=== PATIENT | female | born 1975 ===

== ENCOUNTER 2020-09-21 06:00 | Outpatient (RCR) | payer MEDICAID, SELFPAY | END 2020-10-05 23:59 | disposition home or self-care (01) | LOC: MPT 06:00 | PROVIDERS: PCP Internal Medicine; Referring Provider Internal Medicine; Visit Provider Internal Medicine | DX: M54.2 Cervicalgia (principal) | CPT/HCPCS: 97110; 97161 ==

== ENCOUNTER 2020-10-06 06:00 | Outpatient (RCR) | payer MEDICAID, SELFPAY | END 2020-11-05 23:59 | disposition home or self-care (01) | LOC: MPT 06:00 | PROVIDERS: PCP Internal Medicine; Referring Provider Internal Medicine; Visit Provider Internal Medicine | DX: M54.2 Cervicalgia (principal) | CPT/HCPCS: 97110; 97530 ==

== ENCOUNTER 2020-11-06 06:00 | Outpatient (RCR) | payer MEDICAID, SELFPAY | END 2020-12-03 23:59 | disposition home or self-care (01) | LOC: MPT 06:00 | PROVIDERS: PCP Internal Medicine; Referring Provider Internal Medicine; Visit Provider Internal Medicine | DX: M54.2 Cervicalgia (principal) | CPT/HCPCS: 97110; 97530 ==

== ENCOUNTER 2020-12-04 06:00 | Outpatient (RCR) | payer MEDICAID, SELFPAY | END 2021-01-03 23:59 | disposition home or self-care (01) | LOC: MPT 06:00 | PROVIDERS: PCP Internal Medicine; Referring Provider Internal Medicine; Visit Provider Internal Medicine | DX: M54.41 Lumbago with sciatica, right side (principal) | CPT/HCPCS: 97110; 97530 ==

== ENCOUNTER 2021-01-04 06:00 | Outpatient (RCR) | payer MEDICAID, SELFPAY | END 2021-02-02 23:59 | disposition home or self-care (01) | LOC: MPT 06:00 | PROVIDERS: PCP Internal Medicine; Referring Provider Internal Medicine; Visit Provider Internal Medicine | DX: S46.091S Other injury of muscle(s) and tendon(s) of the rotator cuff of right shoulder, sequela (principal); X58.XXXS Exposure to other specified factors, sequela; M54.2 Cervicalgia | CPT/HCPCS: 97110; 97530 ==

== ENCOUNTER 2021-02-03 06:00 | Outpatient (RCR) | payer MEDICAID, SELFPAY | END 2021-03-05 23:59 | disposition home or self-care (01) | LOC: MPT 06:00 | PROVIDERS: PCP Internal Medicine; Referring Provider Internal Medicine; Visit Provider Internal Medicine | DX: M54.41 Lumbago with sciatica, right side (principal); S46.091S Other injury of muscle(s) and tendon(s) of the rotator cuff of right shoulder, sequela; X58.XXXS Exposure to other specified factors, sequela; M54.2 Cervicalgia | CPT/HCPCS: 97110; 97140; 97530; G0283 ==

== ENCOUNTER 2021-03-06 06:00 | Outpatient (RCR) | payer MEDICAID, SELFPAY | END 2021-04-04 23:59 | disposition home or self-care (01) | LOC: MPT 06:00 | PROVIDERS: PCP Internal Medicine; Referring Provider Internal Medicine; Visit Provider Internal Medicine | DX: M54.41 Lumbago with sciatica, right side (principal); S46.091S Other injury of muscle(s) and tendon(s) of the rotator cuff of right shoulder, sequela; X58.XXXS Exposure to other specified factors, sequela; M54.2 Cervicalgia | CPT/HCPCS: 97110; 97530 ==

== ENCOUNTER 2021-04-05 06:00 | Outpatient (RCR) | payer MEDICAID, SELFPAY | END 2021-05-05 23:59 | disposition home or self-care (01) | LOC: MPT 06:00 | PROVIDERS: PCP Internal Medicine; Referring Provider Internal Medicine; Visit Provider Internal Medicine | DX: M54.41 Lumbago with sciatica, right side (principal); S46.091S Other injury of muscle(s) and tendon(s) of the rotator cuff of right shoulder, sequela; X58.XXXS Exposure to other specified factors, sequela; M54.2 Cervicalgia | CPT/HCPCS: 97110; 97530 ==

== ENCOUNTER 2021-07-02 15:40 | Outpatient (RCR) | payer MEDICAID, SELFPAY | END 2021-07-05 23:59 | disposition home or self-care (01) | LOC: MPT 15:40 | PROVIDERS: PCP Internal Medicine; Referring Provider Internal Medicine; Visit Provider Internal Medicine | DX: M54.2 Cervicalgia (principal); M54.9 Dorsalgia, unspecified; G89.29 Other chronic pain | CPT/HCPCS: 97162; 97530 ==